=== PATIENT | female | born 2000 | race Caucasian/White ===

== ENCOUNTER 2022-01-29 19:03 | Inpatient (IN) ==
--- NOTE | 2022-01-29 19:34 | XRay Report ---
SINGLE VIEW CHEST CLINICAL HISTORY: Right-sided numbness. Blurry vision. Illness. FINDINGS: An AP, portable, upright chest radiograph is compared to study dated 06/22/2011. The patient is status post midline sternotomy. The cardiomediastinal silhouette is unremarkable. The lungs and p leural spaces are clear. No pneumothorax is seen. The bony thorax is grossly intact. IMPRESSION: No active disease in the chest. ACT 112: Negative or not required by law. Electronically signed by: Blair Harmon M.D. 01/29/2022 7:33 PM
[2022-01-29 20:35] LABS: Albumin Globulin Ratio 1.3 (0.9-2); Albumin Level 4.6 gm/dl (3.4-5.0); BUN Creatinine Ratio 16.7 (10-20); Bilirubin,Total 0.4 mg/dl (0.2-1.0); Calcium 9.9 mg/dl (8.5-10.1); Creatinine Clr Calc Pharmacy 108.7 ml/min; Est GFR (African American) 113.5 ml/min; Globulin 3.5 gm/dl (2.5-4.0); Potassium 3.9 mmol/L (3.5-5.1); Total Protein 8.1 gm/dl (6.0-8.3)
[2022-01-29 21:07] LABS: Basophils # (auto) 0.07 K/uL (0-0.2); Basophils % (auto) 0.7 %; Hematocrit (blood only) 43.2 % (34.1-44.9); Hemoglobin 14.6 g/dl (12.0-16.0); Immature Granulocytes # (auto) 0.03 K/uL (0.00-0.02); Immature Granulocytes % (auto) 0.3 %; Lymphocytes # (auto) 3.31 K/uL (1.2-3.4); Mean Corpuscular Hemoglobin 30.1 pg (25.0-34.0); Mean Corpuscular Hgb Conc 33.8 g/dL (32.0-36.0); Mean Corpuscular Volume 89.1 fL (80.0-100.0); Mean Platelet Volume 10.2 fL (9.4-12.3); Monocytes # (auto) 0.57 K/uL (0.24-0.82); Monocytes % (auto) 5.5 %; Neutrophils # (auto) 6.26 K/uL (1.4-6.5); Neutrophils % (auto) 60.5 %; Platelet Count 302 K/uL (130-400); RDW Coefficient of Variation 12.6 % (11.5-14.5); RDW Standard Deviation 41.4 fL (36.4-46.3); Red Blood Count 4.85 M/uL (3.93-5.22); White Blood Count 10.34 K/ul (4.8-10.8)
--- NOTE | 2022-01-29 21:20 | Emergency Department Note ---
Impression & Plan Acute CVA (cerebrovascular accident), Congenital heart defect, Valvular heart disease ED Provider Note NAME: SAMANTHA COOPER AGE: 21 SEX: F : 2000 ARRIVES VIA: Walk-In INFORMANT: Patient ED PROVIDER(S): Tony Ochoa DO CHIEF COMPLAINT: right sided numbness HPI: Patient is a 21-year-old female who presents to the ER for right-sided numbness. Started in her right upper extremity and right leg last night and lasted for about 5 minutes and then resolved. When she woke up this morning she noticed that it was there and has been continuing. It has improved slightly. She denies any headache or change in vision but she notes she did feel weird. Last night she had no double vision or blurry vision but she felt spacey. Denies any belly pain, nausea, vomiting, or diarrhea. She notes that she feels like she did have some trouble getting words out last night. Does have a history of congenital heart defect and valvular disease. ROS: See above HPI for pertinent positives & negatives. A total of 10 systems reviewed and were otherwise negative. PAST MEDICAL HISTORY:See Below PAST SURGICAL HISTORY:See Below FAMILY HISTORY:See Below SOCIAL HISTORY:See Below HOME MEDICATIONS:See Below ALLERGIES:See Below VITALS:See Below PHYSICAL EXAMINATION: GENERAL: Sitting up in bed, alert, well appearing, well nourished, no distress, non-toxic EYE EXAM: normal conjunctiva. PERRL and EOM's grossly intact. OROPHARYNX: no exudate, no erythema, lips, buccal mucosa, and tongue normal and mucous membranes are moist NECK: supple, no nuchal rigidity, no adenopathy, non-tender LUNGS: Clear to auscultation. Normal chest wall mechanics HEART: no murmurs, S1 normal and S2 normal ABDOMEN: abdomen soft, non-tender, normo-active bowel sounds, no masses, no rebo und or guarding. UPPER EXTREMITIES: upper extremities are grossly normal. LOWER EXTREMITIES: No pitting edema. NEURO EXAM: Normal sensorium, cranial nerves II-XII intact, normal speech, no weakness of arms, no weakness of legs. Trouble with rapid alternating movements of right upper extremity. [id number] intact. No drift. MEDICAL DECISION MAKING: Patient is a 21-year-old female who presents ER for right-sided paresthesias. IV was established blood work was obtained. Labs show no significant leukocytosis or anemia. BMP along with LFTs bilirubin was unremarkable. was negative. CT angio of the head and neck shows likely left parietal stroke. MRI confirms this. Patient was given aspirin. She is updated bedside. Unclear as to her cardiac history and surgery as a child although she notes she had some kind of valve repair which is believed to be in the mitral as well as 2 holes in her heart which were repaired. With her age I favor that this likely embolic and she still likely has a shunt from right to left. Discussed with Dr. Victor M Melendrez for further evaluation. Symptoms started yesterday and is clearly not in the window for tPA and there is no LVO for transfer for interventional radiology treatment. Triage Nursing notes reviewed. Limited review of prior medical records performed Vital Signs: reviewed and remarkable for no significant abnormalities Differential diagnosis: Differential Diagnosis includes but is not limited to ischemic Stroke, hemorrhagic stroke, bells palsy, mass, neoplasm, migraine headache, seizure, subarachnoid hemorrhage, TIA, and transient global amnesia. ER treatment provided: See below Diagnostics interpreted by me: ECG: none Cardiac Monitoring: An order was placed for continuous cardiac monitoring. The monitor shows a rate of 90 with sinus rhythm. Laboratory studies: As stated above and show below. Imaging studies: CT angios of the head and neck shows stroke MRI confirms this Consultation(s): Discussed with Dr. Victor M Melendrez for further evaluation Procedures: none Critical Care: None Past Med/Surg History Medical History Congenital heart defect Valvular heart disease ?Mitral valve, per pt Surgical History History of open heart surgery 2012 to repair "2 holes in my heart" "I still have a leaky valve" Social History Smoking Status: Former smoker Preferred Language: Citizen Of [place] Feels Safe at Home: Yes Allergies Allergies Allergy/AdvReac Type Severity Reaction Status Date / Time No Known Allergies Allergy Unverified 06/21/11 00:11 Home Meds Home Medications Medication Instructions Recorded Confirmed None (Patient States No Home Meds) ##0 06/22/11 Results & Data (ED) Vital Signs Vital Signs - 24 hr 01/29/22 19:08 01/29/22 22:21 Temperature 36.5 C Temperature Source Temporal Artery Scan Pulse Rate 92 H Pulse Rhythm Regular Pulse Strength Normal Respiratory Rate 18 Respiratory Effort / Characteristics Non-Labored Spontaneous Non-Labored Respiratory Depth Normal Normal Respiratory Pattern Regular Blood Pressure 149/94 H Blood Pressure Mean 112 Pulse Oximetry 99 Oxygen Delivery Method Room Air Sepsis Recent Fever Within 48 Hours No Sepsis New/Unexplained Change in Mental Status N/A Sepsis Action Taken by Nursing No Action Required Laboratory Data Result diagrams: 01/29/22 19:54 01/29/22 19:54 Lab Results 01/29/22 01/29/22 01/29/22 Range/Units 19:54 19:54 19:54 WBC 10.34 (4.8-10.8) K/ul RBC 4.85 (3.93-5.22) M/uL Hgb 14.6 (12.0-16.0) g/dl Hct 43.2 (34.1-44.9) % MCV 89.1 (80.0-100.0) fL MCH 30.1 (25.0-34.0) pg MCHC 33.8 (32.0-36.0) g/dL RDW Std Deviation 41.4 (36.4-46.3) fL RDW Coeff of Yashira 12.6 (11.5-14.5) % Plt Count 302 (130-400) K/uL MPV 10.2 (9.4-12.3) fL Immature Gran % (Auto) 0.3 % Neut % (Auto) 60.5 % Lymph % (Auto) 32.0 % [place] % (Auto) 5.5 % Eos % (Auto) 1.0 % Baso % (Auto) 0.7 % Neut # (Auto) 6.26 (1.4-6.5) K/uL Lymph # (Auto) 3.31 (1.2-3.4) K/uL [place] # (Auto) 0.57 (0.24-0.82) K/uL Eos # (Auto) 0.10 (0-0.50) K/uL Baso # (Auto) 0.07 (0-0.2) K/uL Immature Gran # (Auto) 0.03 H (0.00-0.02) K/uL Sodium 138 (136-145) mmol/L Potassium 3.9 (3.5-5.1) mmol/L Chloride 104 (98-107) mmol/L Carbon Dioxide 27 (21-32) mmol/L Anion Gap 7 (3-11) BUN 14 (6-23) mg/dl Creatinine 0.84 (0.6-1.2) mg/dl Est Cr Clr Drug Dosing 108.7 ml/min Est GFR ( Amer) 113.5 ml/min Est GFR (Non-Af Amer) 98.0 ml/min BUN/Creatinine Ratio 16.7 (10-20) Glucose 78 (70-99(Fasting)) mg/dl Calcium 9.9 (8.5-10.1) mg/dl Magnesium 1.9 (1.7-2.4) mg/dl Total Bilirubin 0.4 (0.2-1.0) mg/dl AST 16 (13-39) U/L ALT 15 (7-52) U/L Alkaline Phosphatase 61 (34-104) U/L Total Protein 8.1 (6.0-8.3) gm/dl Albumin 4.6 (3.4-5.0) gm/dl Globulin 3.5 (2.5-4.0) gm/dl Albumin/Globulin Ratio 1.3 (0.9-2) POC Ur Test (NEG) 01/29/22 Range/Units 20:00 WBC (4.8-10.8) K/ul RBC (3.93-5.22) M/uL Hgb (12.0-16.0) g/dl Hct (34.1-44.9) % MCV (80.0-100.0) fL MCH (25.0-34.0) pg MCHC (32.0-36.0) g/dL RDW Std Deviation (36.4-46.3) fL RDW Coeff of Yashira (11.5-14.5) % Plt Count (130-400) K/uL MPV (9.4-12.3) fL Immature Gran % (Auto) % Neut % (Auto) % Lymph % (Auto) % [place] % (Auto) % Eos % (Auto) % Baso % (Auto) % Neut # (Auto) (1.4-6.5) K/uL Lymph # (Auto) (1.2-3.4) K/uL [place] # (Auto) (0.24-0.82) K/uL Eos # (Auto) (0-0.50) K/uL Baso # (Auto) (0-0.2) K/uL Immature Gran # (Auto) (0.00-0.02) K/uL Sodium (136-145) mmol/L Potassium (3.5-5.1) mmol/L Chloride (98-107) mmol/L Carbon Dioxide (21-32) mmol/L Anion Gap (3-11) BUN (6-23) mg/dl Creatinine (0.6-1.2) mg/dl Est Cr Clr Drug Dosing ml/min Est GFR ( Amer) ml/min Est GFR (Non-Af Amer) ml/min BUN/Creatinine Ratio (10-20) Glucose (70-99(Fasting)) mg/dl Calcium (8.5-10.1) mg/dl Magnesium (1.7-2.4) mg/dl Total Bilirubin (0.2-1.0) mg/dl AST (13-39) U/L ALT (7-52) U/L Alkaline Phosphatase (34-104) U/L Total Protein (6.0-8.3) gm/dl Albumin (3.4-5.0) gm/dl Globulin (2.5-4.0) gm/dl Albumin/Globulin Ratio (0.9-2) POC Ur Test NEG (NEG) Administered Medications Sodium Chloride (Nss 1000ml) 1,000 mls @ 75 mls/hr IV .[id number] ONE Stop: 01/30/22 11:50 Last Admin: 01/29/22 22:48 Dose: 75 mls/hr Documented By: KYLE Discontinued Medications Aspirin (Aspirin Chew 324 Mg) 81 mg PO NOW STA Stop: 01/29/22 22:25 Last Admin: 01/29/22 22:46 Dose: 81 mg Documented By: KYLE Ioversol (Optiray 320 500ml) 115 ml IV ONCE ONE Stop: 01/29/22 21:44 Last Admin: 01/29/22 21:43 Dose: 115 ml Documented By: MARY Imaging Data Radiologist's Impression: Chest X-Ray 01/29/22 19:14 SINGLE VIEW CHEST CLINICAL HISTORY: Right-sided numbness. Blurry vision. Illness. FINDINGS: An AP, portable, upright chest radiograph is compared to study dated 06/22/2011. The patient is status post midline sternotomy. The cardiomediastinal silhouette is unremarkable. The lungs and pleural spaces are clear. No pneumothorax is seen. The bony thorax is grossly intact. IMPRESSION: No active disease in the chest. ACT 112: Negative or not required by law. Electronically signed by: Blair Harmon M.D. 01/29/2022 7:33 PM Discharge Plan Visit Data Chief Complaint: TIA Symptoms Stated Complaint: NUMBNESS ON RIGHT SIDE,BLURRY VISION, ED Provider: Tony Ochoa Discharge Problem: Acute CVA (cerebrovascular accident), Congenital heart defect, Valvular heart disease Forms Stand Alone Forms: [employer] Prescriptions Prescriptions: No Action None (Patient States No Home Meds) . Qty: 0 Referrals Referrals: PCP,NO [Primary Care Provider] -
[2022-01-29] MEDS ORDERED: OPTIRAY 320 500ml IV ONE (21:43)
[2022-01-29] MEDS ORDERED: ASPIRIN CHEW 324 MG PO STA (22:24)
[2022-01-29] MEDS ORDERED: SODIUM CHLORIDE 0.9% 1000ML 1,000 ML IV ONE (22:31)
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
[2022-01-30] MEDS ORDERED: MAGNESIUM SULFATE / D5W 1 GM/100 ML BAG IV ONE (00:03)
[2022-01-30] MEDS ORDERED: PROMETHAZINE HCL 12.5 MG in SODIUM CHLORIDE 0.9% 50 ML IV PRN (03:02)
[2022-01-30] MEDS ORDERED: LORazepam 0.5 MG TAB PO PRN (03:02)
[2022-01-30] MEDS ORDERED: PHARMACIST DISCHARGE MED REC CONSULT PRN (03:02)
[2022-01-30 05:07] LABS: Basophils # (auto) 0.04 K/uL (0-0.2); Basophils % (auto) 0.4 %; Eosinophils # (auto) 0.13 K/uL (0-0.50); Eosinophils % (auto) 1.4 %; Hematocrit (blood only) 40.5 % (34.1-44.9); Hemoglobin 13.8 g/dl (12.0-16.0); Immature Granulocytes # (auto) 0.02 K/uL (0.00-0.02); Immature Granulocytes % (auto) 0.2 %; Lymphocytes # (auto) 3.12 K/uL (1.2-3.4); Lymphocytes % (auto) 34.7 %; Mean Corpuscular Hgb Conc 34.1 g/dL (32.0-36.0); Mean Platelet Volume 9.9 fL (9.4-12.3); Monocytes # (auto) 0.62 K/uL (0.24-0.82); Monocytes % (auto) 6.9 %; Neutrophils # (auto) 5.06 K/uL (1.4-6.5); Neutrophils % (auto) 56.4 %; Platelet Count 254 K/uL (130-400); RDW Coefficient of Variation 12.6 % (11.5-14.5); RDW Standard Deviation 40.4 fL (36.4-46.3); White Blood Count 8.99 K/ul (4.8-10.8)
[2022-01-30 05:31] LABS: BUN Creatinine Ratio 14.8 (10-20); Calcium 9.1 mg/dl (8.5-10.1); Chol HDL Ratio 5.5 (0-5); Creatinine Clr Calc Pharmacy 112.8 ml/min; Est GFR (African American) 118.6 ml/min; Est GFR (Non-African American) 102.4 ml/min; Potassium 3.9 mmol/L (3.5-5.1)
--- NOTE | 2022-01-30 08:04 | CT Scan Report ---
CT angio head wo/w CLINICAL HISTORY: Right-sided numbness. COMPARISON STUDY: No previous studies for comparison. TECHNIQUE: Unenhanced and arterial phase imaging of the head was performed. Intravenous injection of 114 cc of Optiray 320 IV was uneventful. Automated exposure control was utilized for the study. A do se lowering technique was utilized adhering to the principles of ALARA. FINDINGS: No acute intracranial hemorrhage, midline shift or mass effect is present. There is a hypod ensity with loss of perera-white differentiation within the left parietal lobe that measures approximat nav 3.8 x 2.6 cm. This favors an acute infarct. Ventricle system is normal. Basal cisterns are patent . There are no extra-axial collections. There are no significant calvarial abnormalities. There is oc clusion of a sylvian branch of the left middle cerebral artery shown on axial image 136 of 267. This accounts for the acute infarct within left parietal lobe. No additional sites of vessel occlusion are identified on this examination. No intracranial aneurysm is identified. There is no stenosis within the intracranial vessels. Major dural sinuses are patent. IMPRESSION: 1. Left parietal lobe hypodense focus with loss of perera-white differentiation measuring approximately 3.8 x 2.6 cm. This is suggestive of an acute infarct. 2. Occlusion of a sylvian branch of the left middle cerebral artery which accounts for the acute infa rct. ACT 112: Negative or not required by law. Electronically signed by: Rohit Soto M.D. 01/30/2022 8:03 AM
--- NOTE | 2022-01-30 08:07 | CT Scan Report ---
CT ANGIOGRAPHY OF THE NECK WITH CONTRAST CLINICAL HISTORY: Right-sided numbness. COMPARISON STUDY: No previous studies for comparison. Technique: CT angiography of the carotid and vertebral arteries was obtained using Optiray and 3D rec onstruction on an independent workstation. NASCET criteria was utilized. Automated exposure control was utilized for the study. A dose lowering technique was utilized adhering to the principles of ALA RA. CT DOSE: 1145.73 mGy.cm Findings: Median sternotomy wires are partially imaged. Visualized portions of the lung apices are cl ear. There is no cervical lymphadenopathy. No acute cervical spine fracture is noted. The bilateral c ommon carotid, cervical internal carotid and vertebral arteries are patent. No stenosis or dissection is noted. There is no aneurysm within the neck. Right vertebral artery is dominant. Left vertebral a rtery arises from the aortic arch. IMPRESSION: Unremarkable CTA of the neck. ACT 112: Negative or not required by law. Electronically signed by: Rohit Soto M.D. 01/30/2022 8:06 AM
[2022-01-30] MEDS ORDERED: ACETAMINOPHEN 325 MG TAB PO PRN (08:10)
[2022-01-30] MEDS ORDERED: ENOXAPARIN INJ 40 MG/0.4 ML SYR SQ SCH (09:00)
[2022-01-30] MEDS ORDERED: ASPIRIN 81 MG ECTAB PO SCH (09:00)
--- NOTE | 2022-01-30 09:35 | Magnetic Resonance Report ---
MR brain wo con HISTORY: 21 years-old Female r sided numb acute headache with dizziness. History of congenital heart disease with prior cardiac repair. COMPARISON: CTA had and neck 01/29/2022 TECHNIQUE: Multiplanar multisequence MRI of the brain was obtained without the use of IV contrast. FINDINGS: There is a 4.4 x 2.9 cm focus of restricted diffusion involving the left parietal lobe cortex and sub cortical white matter on image 16 with decreased signal on the ADC map and increased T2/FLAIR signal. The midline structures appear unremarkable. There is no acute intracranial hemorrhage, midline shift, abnormal extra-axial collection, hydrocepha kimberly or intracranial mass. No pathologic blooming artifact on the T2 star series. There are a few scat tered punctate foci of nonspecific increased T2/FLAIR signal noted within the subcortical white matte r of the cerebral hemispheres. Cerebral venous sinuses and major arterial flow voids appear patent. Skull, orbits and soft tissues a re within normal limits. IMPRESSION: 1. 4.4 cm focus of restricted diffusion within the left parietal lobe is predominantly cortically bas ed demonstrating increased T2/FLAIR signal. Findings are suggestive of an acute infarction. 2. No acute intracranial hemorrhage or midline shift. ACT 112: Negative or not required by law. The above report was generated using voice recognition software. It may contain grammatical, syntax o r spelling errors. Electronically signed by: Joselo Perera M.D. 01/30/2022 9:33 AM
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
--- NOTE | 2022-01-30 11:39 | Electrocardiogram Report ---
Test Reason : Blood Pressure : / mmHG Vent. Rate : 090 BPM Atrial Rate : 090 BPM P-R Int : 184 ms QRS Dur : 104 ms QT Int : 370 ms P-R-T Axes : 012 -44 046 degrees QTc Int : 452 ms Normal sinus rhythm with sinus arrhythmia Left axis deviation Voltage criteria for left ventricular hypertrophy Incomplete right bundle branch block Abnormal ECG When compared with ECG of 22-JUN-2011 00:23, PREVIOUS ECG IS PRESENT Confirmed by Eduardo Clement ([id number]) on 01/30/2022 11:39:24 AM Referred By: REFERRED SELF Confirmed By:Nba Clement
--- NOTE | 2022-01-30 13:47 | Pharmacy Report ---
- Date of Service January 30, 2022 - Pharmacy CVA/TIA Medication Review Medications to Prevent Stroke handout has been added to the patients discharge packet. Antiplatelet(s) * Aspirin 81mg daily Cholesterol * High intensity statin deferred due to no evidence of atherosclerosis (cerebral, coronary, or PVD) DVT Prophylaxis * SCD knee Therapeutic Anticoagulation * No history of Afib/Aflutter noted Type 2 Diabetes * Patient does not have T2DM (A1C ordered for 12/3 AM)
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
--- NOTE | 2022-02-08 14:19 | Coding Query ---
CODING QUERY To promote full compliance with coding requirements relating to patient care, provider participation is requested in all cases of tourist information assistant uncertainty. Please assist us with the question(s) below: Coding Question(s): The 01/30 Progress Note and Discharge Summary document, " presented to our ED 01/29 with complaint of right-sided extremity weakness and numbness", and, "Patient presented with complaint of right-sided extremity weakness", and, "Patient's right extremity weakness has improved back to baseline", however the ER documents, "no weakness of arms, no weakness of legs", and the H&P documents, "Last night, patient noted RUE/RLE numbness without headache, neck pain symptoms. No weakness". Due to conflicting documentation regarding right-sided extremity weakness, please specify below, in your clinical opinion, regarding right-sided extremity weakness. ( x ) patient presented with right-sided extremity weakness and numbness ( ) patient did not have right-sided weakness, only numbness ( ) Other: Please Specify Physician's Response(s): Thank you Sandra Schofield Principal Diagnosis: "that condition established after study, to be chiefly responsible for occasioning the admission of the patient to the hospital for care." Co-Existing Principal Diagnosis: "when two or more diagnoses equally meet the criteria for principal diagnosis as determined by the circumstances of admission, diagnostic work up, and/or therapy provided, and the Alphabetic Index, Tabular List, or another coding guideline does not provide sequencing direction, any one of the diagnoses may be sequenced first." "When the physician has documented what appears to be a current diagnosis in the body of the record, but has not included the diagnosis in the final diagnostic statement, the physician should be asked whether the diagnosis should be added." (Source Coding [facility] 2 QTR90. p3-4) KEENAN
== END 2022-01-30 16:38 | disposition short-term general hospital (02) | DRG 65 ==
LOC: ED 19:03 → EDINP 23:14